=== PATIENT | male | born 1975 | race Caucasian/White ===

== ENCOUNTER 2019-04-22 13:35 | Emergency (ER) | payer MEDICAID ==
[~2019-04-22] VITALS: Ht 175.3 cm; Wt 113.4 kg
--- NOTE | 2019-04-22 13:40 | NUR ---
Patient to ER bed 1 to gown for evaluation. Side rails up.
[2019-04-22 13:42] VITALS: BP_SYST 155
--- NOTE | 2019-04-22 13:45 | NUR ---
PT CAME FOR EXTREMITY WEAKNESS AND ETOH. NO PAIN AT THIS TIME, PT IN [facility] COMFORTABLE NO COMPLAINTS AT THIS TIME
--- NOTE | 2019-04-22 13:50 | NUR ---
ER at bedside examining patient.
[2019-04-22] MEDS ORDERED: NACL 0.9% 1,000 ML IV ONE (14:15)
[2019-04-22 14:53] LABS: BASOPHILS # (AUTO) 0.1 K/uL (0.0-0.2); BASOPHILS % (AUTO) 0.9 % (0.0-2.0); CALCIUM 7.8 mg/dL (8.4-11.0); CREATININE 0.64 mg/dL (0.55-1.30); EOSINOPHILS % (AUTO) 0.4 % (0.0-4.0); HEMATOCRIT 37.5 % (36-54); HEMOGLOBIN 12.1 g/dL (14.0-18.0); LYMPHOCYTES # (AUTO) 2.9 K/uL (1.0-5.5); LYMPHOCYTES % (AUTO) 39.8 % (20.5-51.5); MEAN CORPUSCULAR HEMOGLOBIN 26 pg (27-31); MEAN CORPUSCULAR HGB CONC 32 % (32-36); MEAN CORPUSCULAR VOLUME 81 fL (79.0-98.0); MONOCYTES # (AUTO) 0.5 K/uL (0.0-1.0); NEUTROPHILS # (AUTO) 3.7 K/uL (1.8-7.7); NEUTROPHILS % (AUTO) 51.9 % (40.0-70.0); PLATELET COUNT (AUTO) 169 K/uL (130-430); RED BLOOD CELL COUNT(AUTO) 4.62 MIL/uL (4.2-6.2); RED CELL DISTRIBUTION WIDTH 23.3 % (9.0-15.0); WHITE BLOOD COUNT (AUTO) 7.2 K/uL (4.8-10.8)
[2019-04-22 15:00] LABS: ALBUMIN 3.1 g/dL (3.4-4.8); TOTAL BILIRUBIN 0.5 mg/dL (0.0-1.0)
--- NOTE | 2019-04-22 15:50 | NUR ---
PT ASLEEP IN BED NO S/S OF DISTRESS, VSS
--- NOTE | 2019-04-22 17:45 | NUR ---
PT AWAKE, SLOWLY BECOMING MORE ALWERT AND ORIENTED, VSS
[2019-04-22 19:25] VITALS: BP_SYST 155
--- NOTE | 2019-04-22 19:25 | NUR ---
Patient given written and verbal discharge instructions and verbalizes understanding. ER MD discussed with patient the results and treatment provided. Patient in stable condition. ID arm band removed. IV catheter removed intact and dressing applied, no active bleeding. Patient educated on pain management and to follow up with PMD. Pain Scale 0/10. Opportunity for questions provided and answered. Medication side effect fact sheet provided. PT TAXI RIDE ARRIVED FOR
== END 2019-04-22 19:25 | disposition home or self-care (01) ==
LOC: SED 13:35
DX: F10.129 Alcohol abuse with intoxication, unspecified (principal); I10 Essential (primary) hypertension; Y90.8 Blood alcohol level of 240 mg/100 ml or more
CPT/HCPCS: 36415; 80053; 85025; 99283; G0482; J7030